=== PATIENT | male | born 1965 | race Caucasian/White ===

== ENCOUNTER 2021-09-11 12:18 | Inpatient (IN) | payer BC ==
[2021-09-11] MEDS ORDERED: Morphine 4 MG/ML Syringe IVPUSH ONE ×2 (12:34→14:16)
[2021-09-11] MEDS ORDERED: Ondansetron 4 MG/2 ML SDV IVPUSH ONE (15:17)
[2021-09-11] MEDS ORDERED: HYDROmorphone 1 MG/ML Syringe IM ONE (15:17)
[2021-09-11] MEDS ORDERED: Ondansetron 4 MG Tab.DIS PO PRN (16:38)
[2021-09-11] MEDS ORDERED: Acetaminophen 325 MG Tab PO PRN (16:38)
[2021-09-11] MEDS ORDERED: Sodium Chloride 0.9% 1,000 ML IV SCH (16:45)
[2021-09-11] MEDS: Sodium Chloride 0.9% 1,000 ML IV SCH (18:16)
[2021-09-11] MEDS: oxyCODONE 5 MG Tab PO PRN (19:22)
[2021-09-11] MEDS: HYDROmorphone 0.5 MG/0.5 ML Syringe IVPUSH PRN (21:21)
[2021-09-12] MEDS: HYDROmorphone 0.5 MG/0.5 ML Syringe IVPUSH PRN ×5 (01:14→20:21)
[2021-09-12] MEDS: oxyCODONE 5 MG Tab PO PRN ×5 (04:59→22:23)
[2021-09-12] MEDS: Enoxaparin 100 MG/1 ML Syringe SUBCUT SCH ×2 (11:01→22:23)
[2021-09-12] MEDS: Sodium Chloride 0.9% 1,000 ML IV SCH (17:02)
[2021-09-12] MEDS: Temazepam 15 MG Cap PO PRN (20:23)
[2021-09-13] MEDS: HYDROmorphone 0.5 MG/0.5 ML Syringe IVPUSH PRN ×6 (01:43→23:08)
[2021-09-13] MEDS: oxyCODONE 5 MG Tab PO PRN ×5 (03:42→21:00)
[2021-09-13] MEDS: Acetaminophen 325 MG Tab PO SCH ×3 (10:17→20:58)
[2021-09-13] MEDS: Enoxaparin 100 MG/1 ML Syringe SUBCUT SCH (10:18)
[2021-09-13] MEDS ORDERED: Metoprolol Succinate 25 MG Tab.ER PO SCH (11:06)
[2021-09-13] MEDS ORDERED: Metoprolol Tartrate 25 MG Tab PO SCH (11:15)
[2021-09-13] MEDS: Metoprolol Tartrate 25 MG Tab PO SCH ×2 (11:29→20:59)
[2021-09-13] MEDS: Sodium Chloride 0.9% 1,000 ML IV SCH (16:13)
[2021-09-13] MEDS: Temazepam 15 MG Cap PO PRN (21:09)
[2021-09-14] MEDS: oxyCODONE 5 MG Tab PO PRN ×5 (01:09→20:27)
[2021-09-14] MEDS ORDERED: Docusate Sodium 100 MG Cap PO PRN (01:52)
[2021-09-14] MEDS: HYDROmorphone 0.5 MG/0.5 ML Syringe IVPUSH PRN ×5 (02:50→18:54)
[2021-09-14] MEDS: Acetaminophen 325 MG Tab PO SCH ×3 (08:59→20:26)
[2021-09-14] MEDS: Metoprolol Tartrate 25 MG Tab PO SCH ×2 (09:01→20:28)
[2021-09-14] MEDS ORDERED: Lactated Ringers 1,000 ML IV SCH (12:15)
[2021-09-14] MEDS ORDERED: Ondansetron 4 MG/2 ML SDV IVPUSH PRN (13:44)
[2021-09-14] MEDS ORDERED: fentaNYL 100 MCG/2 ML SDV IVPUSH PRN (13:44)
[2021-09-14] MEDS ORDERED: HYDROmorphone 0.5 MG/0.5 ML Syringe IVPUSH PRN (13:44)
[2021-09-14] MEDS: Polyethylene Glycol 3350 Powder 17 GM Packet PO SCH (17:03)
[2021-09-14] MEDS: Temazepam 15 MG Cap PO PRN (20:28)
[2021-09-15] MEDS: oxyCODONE 5 MG Tab PO PRN ×6 (00:45→23:19)
[2021-09-15] MEDS: Enoxaparin 100 MG/1 ML Syringe SUBCUT SCH ×2 (04:30→16:49)
[2021-09-15] MEDS: Metoprolol Tartrate 25 MG Tab PO SCH ×2 (08:54→20:43)
[2021-09-15] MEDS: Acetaminophen 325 MG Tab PO SCH ×3 (08:55→20:44)
[2021-09-15] MEDS: HYDROmorphone 0.5 MG/0.5 ML Syringe IVPUSH PRN ×3 (09:01→18:02)
[2021-09-15] MEDS: Calcium Carbonate 500 MG Tab.Chew PO PRN (16:49)
[2021-09-15] MEDS: Polyethylene Glycol 3350 Powder 17 GM Packet PO SCH (17:53)
[2021-09-15] MEDS ORDERED: Warfarin 5 MG Tab PO SCH (18:00)
[2021-09-15] MEDS ORDERED: Magnesium Hydroxide 400 MG/5 ML Susp 30 ML Cup PO ONE (18:00)
[2021-09-16] MEDS: HYDROmorphone 0.5 MG/0.5 ML Syringe IVPUSH PRN ×2 (01:13→06:36)
[2021-09-16] MEDS: oxyCODONE 5 MG Tab PO PRN ×3 (04:09→11:56)
[2021-09-16] MEDS: Enoxaparin 100 MG/1 ML Syringe SUBCUT SCH (04:10)
[2021-09-16] MEDS: Calcium Carbonate 500 MG Tab.Chew PO PRN (06:41)
[2021-09-16] MEDS: Metoprolol Tartrate 25 MG Tab PO SCH (08:11)
[2021-09-16] MEDS: Acetaminophen 325 MG Tab PO SCH (08:12)
[2021-09-16] MEDS ORDERED: Warfarin 5 MG Tab PO SCH (18:00)
== END 2021-09-16 14:20 | disposition home or self-care (01) | DRG 313 ==
LOC: JD.ED 12:18 → JD.ICU 16:39 → JD.MS 09-13 13:54
PROVIDERS: ADMIT Internal Medicine; ATTEND Internal Medicine
PROC: 0QSG04Z Reposition Right Tibia with Internal Fixation Device, Open Approach (ICD-10-PCS; principal; 2021-09-15)
DX: S82.241A Displaced spiral fracture of shaft of right tibia, initial encounter for closed fracture (principal); S82.831A Other fracture of upper and lower end of right fibula, initial encounter for closed fracture; E78.00 Pure hypercholesterolemia, unspecified; I10 Essential (primary) hypertension; K21.9 Gastro-esophageal reflux disease without esophagitis; G89.29 Other chronic pain; M54.9 Dorsalgia, unspecified; Z86.16 Personal history of COVID-19; Z79.01 Long term (current) use of anticoagulants; Z95.2 Presence of prosthetic heart valve; Z79.899 Other long term (current) drug therapy; Z86.19 Personal history of other infectious and parasitic diseases; W00.9XXA Unspecified fall due to ice and snow, initial encounter; E78.5 Hyperlipidemia, unspecified
CPT/HCPCS: 01480; 36415; 64447; 73590-26-RT; 73590-RT; 73610-26-RT; 73610-RT; 73700-26-RT; 73700-RT; 76000; 76000-26; 76942; 80053; 85025; 85027; 85610; 87641; 94761; 96372; 96374; 96375; 96376; 97116-GP; 97161-GP; 99222; 99232; 99285; 99285-25; A9270-GY; C1713; J1170; J1650; J2270; J2405; J3010; J7030; J7120; U0002

== ENCOUNTER 2022-09-08 10:47 | Day surgery (SDC) | payer BC ==
[~2022-09-08 10:47] MED LIST: Ampicillin 2 GM in Sodium Chloride 0.9% 100 ML IV ONE; Gentamicin 40 MG/ML 20 ML MDV IV SCH; Lactated Ringers 1,000 ML IV SCH; Lidocaine 1%/Sod Bicarbonate in NS 8.4% 1 ML Syringe IDERM PRN; Sodium Chloride 0.9% 10 ML Syringe FLUSH PRN; Sodium Chloride 0.9% 10 ML Syringe FLUSH SCH
[2022-09-08] MEDS ORDERED: Propofol 200 MG/20 ML SDV ONE (11:19)
[2022-09-08] MEDS ORDERED: Midazolam 1 MG/ML 2 ML SDV ONE (11:19)
[2022-09-08] MEDS ORDERED: fentaNYL 100 MCG/2 ML SDV ONE (11:19)
[2022-09-08] MEDS ORDERED: Lidocaine 1% 4 ML ONE (11:20)
== END 2022-09-08 12:55 | disposition home or self-care (01) ==
LOC: JD.SDS 10:47
PROVIDERS: ATTEND Surgery
DX: K29.50 Unspecified chronic gastritis without bleeding (principal); K20.90 Esophagitis, unspecified without bleeding; K31.7 Polyp of stomach and duodenum; K29.80 Duodenitis without bleeding; I34.1 Nonrheumatic mitral (valve) prolapse; I42.8 Other cardiomyopathies; D72.829 Elevated white blood cell count, unspecified; D69.6 Thrombocytopenia, unspecified; R73.9 Hyperglycemia, unspecified; E78.5 Hyperlipidemia, unspecified; I10 Essential (primary) hypertension; E78.00 Pure hypercholesterolemia, unspecified; M54.50 Low back pain, unspecified; G89.29 Other chronic pain; Z79.01 Long term (current) use of anticoagulants; Z98.890 Other specified postprocedural states; Z79.899 Other long term (current) drug therapy; Z86.16 Personal history of COVID-19; Z79.82 Long term (current) use of aspirin
CPT/HCPCS: 43239; J0290; J2250; J2704; J3010; J3490; J7120; 00731; J1580